=== PATIENT | female | born 1950 | race Caucasian/White ===

== ENCOUNTER 2020-05-11 07:29 | Day surgery (SDC) | payer MEDICARE ==
[2020-05-07 11:22] LABS: Absolute Lymphocytes (CBC) 1.8 K/uL (0.7-4.9); Basophils % 0.3 % (0-1.3); Hematocrit 38.1 % (36.0-45.0); Lymphocytes % 29.6 % (15.3-44.8); MPV 8.2 fL (7.6-11.3); RBC Red Blood Cell Count 4.25 M/uL (3.86-4.86)
[2020-05-07 11:36] LABS: Potassium 4.1 mmol/L (3.5-5.1)
--- NOTE | 2020-05-07 12:00 | RAD REPORT ---
EXAM DESCRIPTION: RAD - Chest Pa And Lat (2 Views) - 05/07/2020 11:05 am CLINICAL HISTORY: PRE OP, pending carpal tunnel surgery COMPARISON: None TECHNIQUE: Frontal and lateral views of the chest were obtained. FINDINGS: The lungs are clear. No failure or volume overload. Minimal prominence of the interstitia l pattern believed be baseline. Heart size is normal and central vasculature is within normal limits. No pleural effusion or pneumothorax seen. No acute bone finding. The patient has very pronounced k yphosis at the thoracolumbar junction. Scoliosis is present. Bone detail is limited on this examinati on. No aortic abnormality. IMPRESSION: No acute cardiopulmonary process. Prominent scoliosis and pronounced throughout all lumbar junction kyphosis. Bone detail is limited on this study.
--- OUTSIDE RECORDS SUMMARY | 2020-05-11 07:35 | XMS REPORT | Continuity of Care Document ---
:1950 Author Organization [facility] t Address [address] [place] [address] Care Team Providers Name Role Phone Unknown Attending Clinician Unavailable Pob, Lab Main Attending Clinician Unavailable Doctor Unassigned, Name Attending Clinician Unavailable [facility] Attending Clinician Problems This patient has no known problems. Allergies, Adverse Reactions, Alerts Allergy Allergy Status Severity Reaction(s) Onset Inactive Treating Comm ents Source Name Type Date Date Clinician Aspirin Adverse Active Info Not [facility] Reaction Available [facility] Medications Ordered Filled Start Stop Current Ordering Indication Dosage Frequency Signature Comments Components Source Medication Medication Date Date Medication? Clinician (SIG) Name Name Nitrofurant Nitrofurant 2018- 2020- No Suman [address] [facility] oin oin 12-06 Lechuga with food [facility] 00:00: 00:00 or milk [facility] l l 00 :00 l Outpati ent Clinics Tamsulosin Tamsulosin 2018- 2019- No Suman [address] [facility] HCl HCl 12-06 Lechuga [facility] Premarin Premarin Yes Suman APPLY [facility]uga VAGINALLY [facility] Q OTHER [facility] DAY l Outpat[facility] ent Clinics Mirtazapine Mirtazapine Yes Suman TK [address] [facility] QHS [facility] MANAGER CABLE Thyroid MANAGER CABLE Thyroid Yes Suman MURCIA [address] [facility] D [facility] Alendronate Alendronate Yes Suman [address] [facility] Sodium Sodium [facility] Gabapentin Gabapentin Yes Suman TK [address] [facility] TID AND 6 [facility] - CS PO QHS [facility] l Out[facility] ent Clin[facility] Morphine Morphine Yes Suman (Schedule [facility] Sulfate Sulfate Lechuga II Drug) [facility] - TK 1 T PO Memoria TID l Outpati ent Clinics Cyanocobala Cyanocobala Yes Suman INJECT [address] [facility] min min Lechuga ML UNDER [facility] THE SKIN Memoria WEEKLY l Outpati ent Clinics Lidocaine Lidocaine Yes Suman UNW AND [facility] Lechuga SCARLETT 1 PA [facility] - TO QD FOR Memoria 12 H l Outpati ent Clinics [place] Yes Suman not [facility] Thyroid Thyroid [facility] defined [facility] Myrbetriq Myrbetriq Yes Suman not [facility] defined [facility] Procedures This patient has no known procedures. Encounters Start End Encounter Admission Attending Care Care Encounter Source Date/Time Date/Time Type Type Clinicians Facility Department ID 2020-04-30 2020-04-30 Outpatient [facility] [id number] [facility] 2020-04-26 2020-04-26 Outpatient [facility] [id number] [facility] 2020-04-26 2020-04-26 Out[facility] [id number] [facility] 2020-04-26 2020-04-26 Outpatient [facility] [id number] [facility] 2020-04-06 2020-04-06 Outpatient [facility] [id number] [facility] 2020-04-05 2020-04-05 Outpatient [facility] [id number] [facility] 2020-01-31 2020-01-31 [facility] [id number] 12:07:30 23:59:00 Encounter Attending Adam [id number] [place] 4.2.7.2.686 [place] [id number] 800 2019-10-20 2019-10-20 Hide Buyer Hazel Winston [facility] [id number] 08:49:20 09:04:20 Visit Lab Main Adam [id number] [place] 4.2.7.2.686 Professio [id number] [address] 2019-10-20 2019-10-20 Orders Doctor MARIA ELENA [id number] 00:00:00 00:00:00 Only Unassigned, CASSANDRA [id number] [place] [address].2.7.2.686 [id number] 009 2019-08-19 2019-08-19 Orders Doctor ARREDONDO [id number] 00:00:00 00:00:00 Only Unassigned, CASSANDRA [id number] [place] [address]2.686 [id number] 009 2019-07-15 2019-07-15 [facility] [id number] 08:48:00 23:59:00 Encounter Brinda Medina [id number] [place] 4.2.7.2.686 [place] [id number] 806 2019-07-15 2019-07-15 Telephone [facility] [id number] 00:00:00 00:00:00 Brinda Slade SPECIALTY [id number] [facility] 4.2.7.2.686 [facility] [id number] CODEY [address] [place] [address] 2019-07-15 2019-07-15 Orders Doctor ARREDONDO [id number] 00:00:00 00:00:00 Only Unassigned, CASSANDRA [id number] [place] [address].686 [id number] 009 2019-07-14 2019-07-14 Telemed[facility] [id number] 07:53:37 08:08:37 ne Visit Padminia N SPECIALTY [id number] CARE 4.2.7.2.686 CENTER AT [id number] CODEY Wilson[address] [place] [address] 2019-07-14 2019-07-14 Telephone [facility] [id number] 00:00:00 00:00:00 Ricesthera N SPECIALTY [id number] CARE 4.2.7.2.686 CENTER AT [id number] [place] Steve[address] [place] [address] 2019-07-05 2019-07-05 Orders Doctor MARIA ELENA [id number] 00:00:00 00:00:00 Only Unassigned, CASSANDRA 350.1.13.10 [place] [facility] 4.2.7.2.686 [id number] 009 2019-07-04 2019-07-04 Office [facility] [id number] 10:16:34 11:40:47 Visit Padminia N SPECIALTY [id number] CARE 4.2.7.2.686 CENTER AT [id number] PFEIFERKhalida [address] [place] [address] 2019-04-18 2019-04-18 [facility] [id number] [facility] [address] 14:11:00 14:11:00 t [facility] 2019-04-08 2019-04-08 Emergency E [facility] 9354 [facility] 12:44:00 12:44:00 2019-03-29 2019-03-29 [facility] [id number] [address] 16:21:00 16:21:00 t [facility] Clinics 2019-03-10 2019-03-10 [facility] [id number] 08:00:00 08:00:00 t [facility] Clinics 2019-01-06 2019-01-06 Outpatient Johny Prince [id number] [facility] 10:41:00 10:41:00 t [facility] 2018-12-15 2018-12-15 Outpatient Johny Prince [id number] 09:22:00 09:22:00 [facility] 2018-12-07 2018-12-07 Outpatient Johny Prince [id number] [address] 09:00:00 09:00:00 t [facility] 2018-12-06 2018-12-06 Outpatient Johny Prince [id number] 09:15:00 09:15:00 t Specialty/U Nana kes - Specialty rology [facility] a /Urology Clinic [facility] ent [facility] Results This patient has no known results.
--- OUTSIDE RECORDS SUMMARY | 2020-05-11 07:35 | XMS REPORT ---
:1950 Author Organization [facility] Address [address] [place] [address] Care Team Providers Name Role Phone Suman Lechuga Unavailable [phone] PROBLEMS Type Condition ICD9-CM DEV01-BM Onset Condition SNOMED Code Notes Code Code Dates Status Problem Bladder N81.10 Active 703792550 prolapse, female, acquired Problem Pain in right M79.641 Active 671166442488488 hand Problem Carpal tunnel G56.01 Active 360144415593825 syndrome of right wrist Problem Carpal tunnel G56.02 Active 354250031762626 syndrome of left wrist ALLERGIES Allergen (clinical drug Drug/Non Drug Allergy Reaction Allergy Type Onset Date Status ingredient) documented on EMR codeine codeine Unknown Drug Allergy Active Latex Unknown Drug Allergy Active aspirin Aspirin([facility] Unknown Drug Allergy Active Code:[address]-68) ENCOUNTERS from 1950 to 2020-04-26 Encounter Location Date Provider Diagnosis [facility] [address] Apr, [place] [address] IMMUNIZATIONS Vaccine Route Administration Date Status Betamethasone Sodium Phosphate Unknown Dec 07, 2018 A dministered LIDOCAINE HCL 10MG/ML Unknown Dec 07, 2018 Administer ed SOCIAL HISTORY Tobacco Use: Social History Observation Description Date Details (start date - stop date) Former Smoker Sex Assigned At : Social History Observation Description Sex Assigned At Unknown Alcohol Screen Question Answer Notes Did you have a drink containing alcohol in the past year? 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 Thyroid 90 MG TK 1 T PO D Oral for Active 30 Tamsulosin HCl 0.4 mg 1 capsule Orally Once Not-Taking a day for 30 Mirtazapine 30 MG TK 1 T PO QHS Oral for Not-Taking 90 Gabapentin 400 MG TK 1 C PO TID AND 6 CS Active PO QHS Oral for 30 Lidocaine 5 % UNW AND SCARLETT 1 PA TO QD Active FOR 12 H External for 30 Morphine Sulfate 15 MG (Schedule II Drug) TK Not-Taking 1 T PO TID Oral for 28 Cyanocobalamin 1000 MCG/ML INJECT 1 ML UNDER THE Active SKIN WEEKLY Injection for 7 Alendronate Sodium 70 MG 1 tablet Orally for 30 Active day(s) AZO Cranberry Urinary Act kian Tract Turmeric Active Multivitamin Active Myrbetriq Not-Taking [place] Thyroid Not-Taking Zinc Active PROCEDURES No Information RESULTS No Results REASON FOR VISIT Surgery MEDICAL (GENERAL) HISTORY Type Description Date Medical History breast cancer Medical History scoliosis Medical History vricous vein Medical History prolapsed bladder Surgical History right ankle Surgical History thoraic and lumbar spinal fusion Surgical History c section (2) Surgical History partial hysterectomy Surgical History right wrist Surgical History Pain pump Goals Section No Information Health Concerns No Information MEDICAL EQUIPMENT No Information MENTAL STATUS No Information FUNCTIONAL STATUS No Information ASSESSMENTS No Information PLAN OF TREATMENT No Information Insurance Providers Payer Name Payer Payer Insured Patient Coverage Coverage End Address Phone Name Relationship to Start Date Nirmal e Insured [phone] RYAN LOPEZ [facility] [id number] [address] [facility] [address]
--- OUTSIDE RECORDS SUMMARY | 2020-05-11 07:35 | XMS REPORT ---
:1950 Author Organization [facility] Address [address], [facility] [place] [address] Care Team Providers Name Role Phone Lechuga, Suman Unavailable [phone] PROBLEMS Type Condition ICD9-CM LWW42-ZE Onset Condition SNOMED Code Notes Code Code Dates Status Problem Bladder N81.10 Active 868678523 prolapse, female, acquired Problem Pain in right M79.641 Active 104573641045641 hand Problem Carpal tunnel G56.01 Active 532584469400313 syndrome of right wrist Problem Carpal tunnel G56.02 Active 723806930504287 syndrome of left wrist ALLERGIES Allergen (clinical drug Drug/Non Drug Allergy Reaction Allergy Type Onset Date Status ingredient) documented on EMR codeine codeine Unknown Drug Allergy Active Latex Unknown Drug Allergy Active aspirin Aspirin([facility] Unknown Drug Allergy Active Code:[address]-49) ENCOUNTERS from 1950 to 2020-04-16 Encounter Location Date Provider Diagnosis [facility] [address] [place], Suman Lechuga Carp [facility] tunnel [facility] [address], [place] [address] wrist G56.01 ; Pain in right wrist M25.531 ; Carpa l tunnel syndrome of left wrist G56. 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 LECHUGA MEDICAL (GENERAL) HISTORY Type Description Date Medical [...] No Information FUNCTIONAL STATUS No Information ASSESSMENTS Encounter Date Diagnosis Assessment Notes Treatment Notes Treatm ent Clinical Notes Mar, Carpal tunnel -she has failed syndrome of right conservative wrist (ICD-10 - treatment including G56.01) use of night spl ints -EMG/NCS demonstrates moderate to severe carpal tunnel syndrome -will proceed with carpal tunnel release of the right as it is more symptomatic at this time -return to clinic postop for suture removal -will discuss left carpal tunnel release after independent with the right hand Mar, Pain in right wrist (ICD-10 - M25.531) Mar, Carpal tunnel -she has failed syndrome of left conservative wrist (ICD-10 - treatment including G56.02) use of night spl ints -EMG/NCS demonstrates moderate to severe carpal tunnel syndrome -will proceed with carpal tunnel release of the right as it is more symptomatic at this time -return to clinic postop for suture removal -will discuss left carpal tunnel release after independent with the right hand Mar, Pain in left wrist (ICD-10 - M25.532) PLAN OF TREATMENT Treatment Notes Assessment Notes Clinical Notes Carpal tunnel syndrome of right -she has failed conservative wrist treatment including use of night splints-EMG/NCS demonstrates moderate to severe carpal tunnel syndrome-will proceed with carpal tunnel release of the right as it is more symptomatic at this time-return to clinic postop for suture removal-will discuss left carpal tunnel release after independent with the right hand Carpal tunnel syndrome of left -she has failed conservative wrist treatment including use of night splints-EMG/NCS demonstrates moderate to severe carpal tunnel syndrome-will proceed with carpal tunnel release of the right as it is more symptomatic at this time-return to clinic postop for suture removal-will discuss left carpal tunnel release after independent with the right hand Next Appt Details 1 Week post op surgery Reason: Insurance Providers Payer Name Payer Payer Insured Patient Coverage Coverage End Address Phone Name Relationship to Start Date Nirmal e Insured [facility] [phone] RYAN LOPEZ [facility] [id number] [facility] [address]
--- OUTSIDE RECORDS SUMMARY | 2020-05-11 07:35 | XMS REPORT ---
:1950 Author Organization [facility] Address [address] [place] [address] Care Team Providers Name Role Phone Suman Lechuga Unavailable [phone] PROBLEMS Type Condition ICD9-CM NLA91-BN Onset Condition SNOMED Code Notes Code Code Dates Status Problem Bladder N81.10 Active 672286463 prolapse, female, acquired Problem Pain in right M79.641 Active 955704856786235 hand Problem Carpal tunnel G56.01 Active 898545137218094 syndrome of right wrist Problem Carpal tunnel G56.02 Active 478580307692879 syndrome of left wrist ALLERGIES Allergen (clinical drug Drug/Non Drug Allergy Reaction Allergy Type Onset Date Status ingredient) documented on EMR codeine codeine Unknown Drug Allergy Active Latex Unknown Drug Allergy Active aspirin Aspirin([facility] Unknown Drug Allergy Active Code:[address]-91) ENCOUNTERS from 1950 to 2020-04-16 Encounter Location Date Provider Diagnosis [facility] [address] Mar, [place] [address] IMMUNIZATIONS Vaccine Route Administration Date Status Betamethasone [...] Start Date End Date Status Frequency, Duration) 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
--- OUTSIDE RECORDS SUMMARY | 2020-05-11 07:35 | XMS REPORT ---
:1950 Author Organization [facility] Address [address] [place] [address] Care Team Providers Name Role Phone Suman Lechuga Unavailable [phone] PROBLEMS Type Condition ICD9-CM YCG26-VH Onset Condition SNOMED Code Notes Code Code Dates Status Problem Bladder N81.10 Active 796054764 prolapse, female, acquired Problem Pain in right M79.641 Active 031972554917946 hand Problem Carpal tunnel G56.01 Active 712613422964550 syndrome of right wrist Problem Carpal tunnel G56.02 Active 419576470858064 syndrome of left wrist ALLERGIES Allergen (clinical drug Drug/Non Drug Allergy Reaction Allergy Type Onset Date Status ingredient) documented on EMR codeine codeine Unknown Drug Allergy Active Latex Unknown Drug Allergy Active aspirin Aspirin([facility] Unknown Drug Allergy Active Code:[address]-42) ENCOUNTERS from 1950 to 2020-04-27 Encounter Location Date Provider Diagnosis [facility] [address] Apr, [place] [address] IMMUNIZATIONS Vaccine Route Administration Date Status Betamethasone [...] Start Date End Date Status Frequency, Duration) 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
--- OUTSIDE RECORDS SUMMARY | 2020-05-11 07:35 | XMS REPORT ---
:1950 Author Organization [facility] Address [address] [place] [address] Care Team Providers Name Role Phone Suman Lechuga Unavailable [phone] PROBLEMS Type Condition ICD9-CM LDY58-ZR Onset Condition SNOMED Code Notes Code Code Dates Status Problem Bladder N81.10 Active 302206438 prolapse, female, acquired Problem Pain in right M79.641 Active 162086875222615 hand Problem Carpal tunnel G56.01 Active 354572708709114 syndrome of right wrist Problem Carpal tunnel G56.02 Active 792298410763659 syndrome of left wrist ALLERGIES Allergen (clinical drug Drug/Non Drug Allergy Reaction Allergy Type Onset Date Status ingredient) documented on EMR codeine codeine Unknown Drug Allergy Active Latex Unknown Drug Allergy Active aspirin Aspirin([facility] Unknown Drug Allergy Active Code:[address]-85) ENCOUNTERS from 1950 to 2020-04-27 Encounter Location Date Provider Diagnosis [facility] [address] [place] [address] Apr, [place] [address] IMMUNIZATIONS Vaccine Route Administration Date Status Betamethasone [...] Start Date End Date Status Frequency, Duration) 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
--- OUTSIDE RECORDS SUMMARY | 2020-05-11 07:36 | XMS REPORT ---
:1950 Author Organization [facility] Address [address] [place] [address] Care Team Providers Name Role Phone Suman Lechuga Unavailable [phone] PROBLEMS Type Condition ICD9-CM ZFP62-CV Onset Condition SNOMED Code Notes Code Code Dates Status Problem Bladder N81.10 Active 693391910 prolapse, female, acquired Problem Pain in right M79.641 Active 384495788242085 hand Problem Carpal tunnel G56.01 Active 936475492222908 syndrome of right wrist Problem Carpal tunnel G56.02 Active 285626746841559 syndrome of left wrist ALLERGIES Allergen (clinical drug Drug/Non Drug Allergy Reaction Allergy Type Onset Date Status ingredient) documented on EMR codeine codeine Unknown Drug Allergy Active Latex Unknown Drug Allergy Active aspirin Aspirin([facility] Unknown Drug Allergy Active Code:[address]-53) ENCOUNTERS from 1950 to 2020-05-01 Encounter Location Date Provider Diagnosis [facility] [address] Apr, [place] [address] IMMUNIZATIONS Vaccine Route Administration Date Status Betamethasone [...] Start Date End Date Status Frequency, Duration) 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 Thyroid 90 MG TK 1 T PO [...] Tract Turmeric Active Multivitamin Active Myrbetriq Not-Taking [place] Thyroid Not-Taking Zinc Active PROCEDURES No Information RESULTS No Results REASON FOR VISIT Surgery question MEDICAL (GENERAL) HISTORY Type Description Date Medical [...] Information ASSESSMENTS No Information PLAN OF TREATMENT Next Appt Details Provider Name:Suman Lechuga, 2020-05-17 0 1:00:00 PM, [address] [facility] [address], [place], [address], Insurance Providers Payer Name Payer Payer Insured Patient Coverage Coverage End Address Phone Name Relationship to Start Date Nirmal e Insured [facility] [phone] MINTURNR[place]AN [facility] [phone] [facility] [address]
[2020-05-11] MEDS ORDERED: CEFAZOLIN/SWI 1gm 1 GM/10 ML SYR ONE (08:05)
[2020-05-11] MEDS ORDERED: Ringers Lactate 1,000 ML IV ONE (08:05)
[2020-05-11] MEDS ORDERED: BUPIVACAINE 0.25% PF 10 ML VIAL ONE (08:20)
[2020-05-11] MEDS ORDERED: KETOROLAC 30 MG/ML INJ ONE (08:52)
[2020-05-11] MEDS ORDERED: dexAMETHasone 10 MG/ML VIAL ONE (08:52)
[2020-05-11] MEDS ORDERED: LIDOCAINE 2% MPF 5 ML VIAL ONE (08:52)
[2020-05-11] MEDS ORDERED: FENTANYL CITR 100 MCG/2 ML ONE (08:52)
[2020-05-11] MEDS ORDERED: MIDAZOLAM HCL 2 MG/2 ML INJ ONE (08:52)
[2020-05-11] MEDS ORDERED: propofoL 200 MG/20 ML VIAL IV ONE (08:52)
[2020-05-11] MEDS ORDERED: ONDANSETRON 4 MG/2 ML VIAL ONE (08:57)
[2020-05-11] MEDS ORDERED: EPHEDRINE SULF 50 MG/ML VIAL ONE ×2 (09:45→09:48)
--- NOTE | 2020-05-11 10:00 | P.BOP ---
Preoperative diagnosis: right carpal tunnel syndrome Postoperative diagnosis: same Primary procedure: right carpal tunnel release Gaming Table Operator: NONE,NONE Estimated blood loss: 2 cc Specimen: none Findings: see dictation Anesthesia: General Complications: None Implants: none Fluids & blood products: per anesthesia record; TT: 17 mins @ 250 mmHg Transferred to: Recovery Room Condition: Good
[2020-05-11] MEDS: HYDROMORPHONE HCL 1 MG/ML INJ ONE ×2 (10:23→10:28)
[2020-05-11] MEDS ORDERED: TRAMADOL HCL 50 MG TAB ONE (11:14)
[2020-05-11 12:10] VITALS: BP 132/83; TEMP 96.1; O2SAT 92
--- NOTE | 2020-05-12 00:56 | OP ---
Date of Procedure: 05/11/2020 Surgeon: Suman Lechuga MD Preoperative Diagnosis: Right hand carpal tunnel syndrome. Postoperative Diagnosis: Right hand carpal tunnel syndrome. Procedure Performed: Right open carpal tunnel release. Anesthesia: General LMA. Fluids: Per anesthesia record. Estimated Blood Loss: 3 cc. Complications: None. Tourniquet Time: 17 minutes at 250 mmHg. Indication For Procedure: Hilary is a 70-year-old female, who presented to my clinic with signs, sympt oms, and EMG findings consistent with significant right carpal tunnel syndrome. The patient failed c onservative treatment measures and had significant symptoms interfering with her activities of daily living. I discussed with the patient at length risks and benefits associated with operative and nono perative treatment. She expressed understanding and elected to proceed with operative treatment. Description Of Procedure: After informed consent was obtained, the patient was identified in the pre operative holding area. The right upper extremity was marked. The patient was then brought back to the operating room, transferred to the operative table in supine fashion, placed under general LMA an esthesia. The right upper extremity was then prepped and draped in usual sterile fashion. A time-ou t was initiated. The correct patient and procedure were confirmed and identified. The patient did r eceive her preoperative prophylactic antibiotics. The right lower extremity was then exsanguinated u sing an Esmarch and the tourniquet was inflated to 250 mmHg. Approximately a 1 or 2 cm longitudinal incision was made just ulnar to the thenar crease. Dissection was then taken down to the palmar fasc ia. Self-retaining retractor was placed. The palmar fascia was then split and divided using tenotom ies. A [place] elevator was placed just deep to the palmar fascia to protect the median nerve at all t imes. A 15 blade was then used to release the transverse carpal ligament under direct visualization as well as continued protection of the median nerve with a [place] elevator. Any remaining fascial ban ds were then released using a blunt-tipped Metzenbaum scissor with the tips aimed superficially to pr otect the median nerve at all times. The wound was then irrigated thoroughly with normal saline. Th e skin was approximated using a 5-0 Prolene. Sterile dressings were applied. Tourniquet was let neyda n. The patient was awakened and transferred to PACU in stable condition. Postoperative Plan: She may begin working on range of motion exercises. She will follow up in clini c in 1 week for suture removal. CLARI/MONISHA Voice ID: [id number] Report ID: [id number]
== END 2020-05-11 11:55 | disposition home health service (06) ==
LOC: OR 07:29
PROVIDERS: ATTEND Orthopaedic Surgery Sports Medicine
PROC: 01N50ZZ Release Median Nerve, Open Approach (ICD-10-PCS; principal; 2020-05-11 08:45)
DX: G56.01 Carpal tunnel syndrome, right upper limb (principal); Z20.822 Contact with and (suspected) exposure to COVID-19
CPT/HCPCS: 93005; 85025; 80048; 36415; 85610; 85730; 71046; 64721; U0002; J2704; J2250; J3010; J1100; J1170; J0690; J7120; J2405

== ENCOUNTER 2020-07-18 06:38 | Day surgery (SDC) | payer MEDICARE ==
[2020-07-13 10:43] LABS: Protime INR 0.92
[2020-07-13 10:47] LABS: Absolute Lymphocytes (CBC) 2.2 K/uL (0.7-4.9); Basophils % 1.1 % (0-1.3); Hematocrit 36.5 % (36.0-45.0); Lymphocytes % 30.7 % (15.3-44.8); MPV 8.5 fL (7.6-11.3); RBC Red Blood Cell Count 4.05 M/uL (3.86-4.86)
[2020-07-13 10:55] LABS: Potassium 4.1 mmol/L (3.5-5.1)
[2020-07-13 11:15] LABS: Blood Morphology Comment NOT SEEN (NOT SEEN); Platelet Estimate ADEQ; White Blood Cell Scan OK (OK)
[2020-07-18] MEDS ORDERED: ACETAMINOPHEN 500 MG TAB ONE (07:13)
[2020-07-18] MEDS ORDERED: Ringers Lactate 1,000 ML IV ONE (07:13)
[2020-07-18] MEDS ORDERED: CEFAZOLIN/SWI 1gm 1 GM/10 ML SYR ONE (07:13)
[2020-07-18] MEDS ORDERED: CELECOXIB 100 MG CAPSULE ONE (07:13)
[2020-07-18] MEDS ORDERED: MIDAZOLAM HCL 2 MG/2 ML INJ ONE (07:18)
[2020-07-18] MEDS ORDERED: KETOROLAC 30 MG/ML INJ ONE (07:18)
[2020-07-18] MEDS ORDERED: LIDOCAINE 1% MPF 5 ML VIAL ONE (07:18)
[2020-07-18] MEDS ORDERED: FENTANYL CITR 100 MCG/2 ML ONE (07:18)
[2020-07-18] MEDS ORDERED: propofoL 200 MG/20 ML VIAL IV ONE (07:18)
[2020-07-18] MEDS ORDERED: dexAMETHasone 10 MG/ML VIAL ONE (07:19)
[2020-07-18] MEDS: BUPIVACAINE 0.25% PF 10 ML VIAL ONE ×2 (07:51→08:05)
--- NOTE | 2020-07-18 08:19 | P.BOP ---
Preoperative diagnosis: left carpal tunnel syndrome Postoperative diagnosis: same Primary procedure: left open carpal tunnel release Sanitation Manager: NONE,NONE Estimated blood loss: 3 cc Specimen: none Findings: see dictation Anesthesia: General Complications: None Implants: none Fluids & blood products: per anesthesia record; TT: 17 mins @ 250 mmHg Transferred to: Recovery Room Condition: Good
[2020-07-18] MEDS: FENTANYL CITR 100 MCG/2 ML ONE ×2 (08:35→08:45)
[2020-07-18] MEDS ORDERED: ONDANSETRON 4 MG/2 ML VIAL ONE (08:48)
[2020-07-18] MEDS ORDERED: HYDROMORPHONE HCL 1 MG/ML INJ ONE (09:09)
[2020-07-18 09:40] VITALS: BP 145/77; TEMP 96.8; O2SAT 95
--- NOTE | 2020-07-18 21:26 | OP ---
Date of Procedure: 07/18/2020 Surgeon: Suman Lechuga MD Preoperative Diagnosis: Left carpal tunnel syndrome. Postoperative Diagnosis: Left carpal tunnel syndrome. Procedure Performed: Left open carpal tunnel release. Anesthesia: General, LMA. Fluids: Per Anesthesia record. Ebl: 3 cc. Tourniquet Time: 17 minutes at 250 mmHg. Indication For Procedure: Jenna is a 70-year-old female who presented to my clinic with signs, symp toms, and EMG findings consistent with left carpal tunnel syndrome. Patient failed conservative lamonte tment measures and had significant pain and numbness that interfere with her activities of daily kita ng. I discussed with the patient at length risks and benefits associated with operative and nonopera tive treatment. She expressed understanding and elected to proceed with left carpal tunnel release. Description Of Procedure: After informed consent was obtained, the patient was identified in the pre operative holding area. The left upper extremity was marked. The patient was then brought back to [facility] operating room, transferred to the operative table in a supine fashion, and placed under general L MA anesthesia. The left upper extremity was then prepped and draped in usual sterile fashion. A angy e-out was initiated. The correct patient and procedure were confirmed and identified. The patient d id receive her preoperative prophylactic antibiotics. Approximately 3 cm longitudinal incision was m scar just ulnar to the thenar crease. Dissection was then taken down to the palmar fascia, which was identified. A [place] elevator was placed just deep to the palmar fascia and transverse carpal ligamen t to protect the median nerve at all times. A 15 blade was then used to release the transverse carpa l ligament under direct visualization with the Slayden elevator protecting the median nerve at all time s. Smooth tip Metzenbaums were then used to release any remaining fascial bands around the transvers e carpal ligament. The wound was then irrigated thoroughly with normal saline and skin was approxima lucien using a 5-0 Prolene. Sterile dressings were applied. Tourniquet was let down. The patient was awakened and transferred to PACU in stable condition. Postoperative Plan: She will be nonweightbearing of her left upper extremity. She will follow up in my clinic in 1 to 2 weeks for wound check and suture removal. CV/MODL Voice ID: [id number] Report ID: [id number]
== END 2020-07-18 09:45 | disposition home or self-care (01) ==
LOC: OR 06:38
PROVIDERS: ATTEND Orthopaedic Surgery Sports Medicine
PROC: 01N50ZZ Release Median Nerve, Open Approach (ICD-10-PCS; principal; 2020-07-18 07:30)
DX: G56.02 Carpal tunnel syndrome, left upper limb (principal); Z20.822 Contact with and (suspected) exposure to COVID-19
CPT/HCPCS: 85025; 80048; 36415; 85610; 85730; 64721; U0002; J2704; J2250; J3010 ×2; J1100; J1170; J0690; J7120; J2405

== ENCOUNTER 2021-02-01 17:43 | Inpatient (IN) | payer MEDICARE ==
[2021-02-01 21:21] LABS: Absolute Lymphocytes (CBC) 2.6 K/uL (0.7-4.9); Basophils % 0.7 % (0-1.3); Hematocrit 44.7 % (36.0-45.0); Lymphocytes % 13.8 % (15.3-44.8); MPV 7.3 fL (7.6-11.3); RBC Red Blood Cell Count 4.94 M/uL (3.86-4.86)
[2021-02-01 21:25] LABS: Albumin 3.4 g/dL (3.4-5.0); Bilirubin Direct 0.2 mg/dL (0-0.2); Bilirubin Total 0.6 mg/dL (0.2-1.0); Potassium 3.1 mmol/L (3.5-5.1); Protein, Total 7.7 g/dL (6.4-8.2)
[2021-02-01] MEDS ORDERED: PIPERACIL/TAZO 3.375 GM VIAL IV ONE (22:25)
[2021-02-01] MEDS ORDERED: NA CHLORIDE 0.9% 100 ML ONE (22:26)
--- NOTE | 2021-02-02 01:49 | EDPHYS ---
Physician Documentation [facility] Name: Jenna Zuleta Age: 71 yrs Sex: Female : 1950 Arrival Date: 02/01/2021 Time: 17:47 Bed 13 Private MD: ED Physician David Brown HPI: 02/01 20:12 71-year-old female presenting with back pain. She has a history of chronic back pain ps1 secondary to severe kyphoscoliosis. She has a Dilaudid pump as well as clonidine for chronic pain. She has been seen multiple times over the past week at [facility] in which she had a headache nausea and vomiting she had a CT scan at that time which demonstrated no acute findings. She had hematuria on her UA. She was given Phenergan and discharged from the emergency department with no acute findings. She went to [place] freestanding which they performed Covid influenza and respiratory viral panel also gave her IV fluids and Zofran. Daughter brought her in today for reevaluation as she is not eating or drinking anything in the last 2 days other than a little bit of Ensure. She is still complaining of moderate to severe back pain. She states that the pain is similar to her normal chronic back pain but is increased in intensity.. Historical: - Allergies: 18:13 Codeine; ld1 18:13 Methadone; ld1 18:13 Latex, Natural Rubber; ld1 - Home Meds: 18:13 alendronate 70 mg oral tbef 1 tab once wkly [Active]; gabapentin 800 mg oral tab ld1 [Active]; cyanocobalamin (vitamin B-12) oral chew [Active]; Lidoderm 5 % Topical ptmd [Active]; - PMHx: 18:13 scoliosis; Hypothyroidism; ld1 - PSHx: 18:13 pain pump; thoracic spinal fusion; partial hysterectomy; Lumpectomy of breast; ld1 section; - Immunization history:: Adult Immunizations up to date, Client reports receiving the 2nd dose of the Covid vaccine. - Social history:: Smoking status: Patient/guardian denies using tobacco, the patient reports quitting approximately 14 years ago. ROS: 20:12 Constitutional: Negative for fever, chills, and weight loss, Eyes: Negative for injury, ps1 pain, redness, and discharge, Cardiovascular: Negative for chest pain, palpitations, and edema, Respiratory: Negative for shortness of breath, cough, wheezing, and pleuritic chest pain, MS/Extremity: Negative for injury and deformity, Skin: Negative for injury, rash, and discoloration, Neuro: Negative for headache, weakness, numbness, tingling, and seizure. 20:12 Abdomen/GI: Positive for nausea and vomiting. 20:12 Back: Positive for pain with movement. Exam: 20:12 Constitutional: This is a well developed, well nourished patient who is awake, alert, ps1 and in no acute distress. Head/Face: Normocephalic, atraumatic. Eyes: Pupils equal round and reactive to light, extra-ocular motions intact. Lids and lashes normal. Conjunctiva and sclera are non-icteric and not injected. Cardiovascular: Regular rate and rhythm. No gallops, murmurs, or rubs. Normal PMI, no JVD. No pulse deficits. Respiratory: Lungs have equal breath sounds bilaterally, clear to auscultation and percussion. No rales, rhonchi or wheezes noted. No increased work of breathing, no retractions or nasal flaring. Abdomen/GI: Soft, non-tender, with normal bowel sounds. No distension or tympany. No guarding or rebound. No evidence of tenderness throughout. Skin: Warm, dry with normal turgor. Normal color with no rashes, no lesions, and no evidence of cellulitis. MS/ Extremity: Pulses equal, no cyanosis. Neurovascular intact. Full, normal range of motion. Neuro: Awake and alert, GCS 15, oriented to person, place, time, and situation. Cranial nerves II-XII grossly intact. Sensory grossly intact. 20:12 Back: scoliosis that is marked. Vital Signs: 18:10 BP 167 / 112; Pulse 113; Resp 22; Temp 98.9(O); Pulse Ox 98% on R/A; Weight 52.16 kg; ld1 Height 5 ft. 0 in. (152.40 cm); Pain 10/10; 18:10 Body Mass Index 22.46 (52.16 kg, 152.40 cm) ld1 MDM: 20:17 Patient medically screened. ps1 02/01 20:12 Order name: Basic Metabolic Panel; Complete Time: 21:30 ps1 02/01 20:12 Order name: CBC with Diff; Complete Time: 21:30 ps1 02/01 20:12 Order name: Hepatic Function; Complete Time: 21:30 ps1 02/01 20:12 Order name: Lipase; Complete Time: 21:30 ps1 02/02 01:26 Order name: CREATININE WHOLE BLOOD; Complete Time: 01:47 EDMS 02/02 01:46 Order name: Blood Culture Adult (2) ps1 02/02 01:49 Order name: Lactate la1 02/02 01:49 Order name: Procalcitonin la1 02/02 01:49 Order name: Urine Microscopic Only la1 02/02 01:50 Order name: COVID-19 (Coronavirus) Document "Date of Onset" if Symptomatic la1 02/02 01:50 Order name: Flu; Complete Time: 04:59 la1 02/02 01:52 Order name: TSH la1 02/02 01:52 Order name: T4 Free la1 02/02 03:55 Order name: Lactate tt3 02/01 20:12 Order name: CT Abd/Pelvis - IV Contrast Only ps1 02/02 01:49 Order name: Chest Single View XRAY la1 02/02 04:05 Order name: Procal tt3 02/02 04:14 Order name: Lactate; Complete Time: 04:59 EDMS 02/02 04:24 Order name: SARS-COV-2 RT PCR; Complete Time: 04:59 EDMS 02/02 04:37 Order name: Procalcitonin; Complete Time: 04:59 EDMS 02/02 07:41 Order name: RAD EDMS 02/02 09:01 Order name: Urinalysis EDMS 02/02 09:03 Order name: CBC with Automated Diff EDMS 02/02 09:07 Order name: Comprehensive Metabolic Panel EDMS 02/02 09:07 Order name: Lipid Profile EDMS 02/02 09:07 Order name: Magnesium EDMS 02/02 09:11 Order name: Urine Microscopic Only EDMS 02/01 20:12 Order name: IV Saline Lock; Complete Time: 20:28 ps1 02/01 20:12 Order name: Labs collected and sent; Complete Time: 20:28 ps1 Administered Medications: 21:57 Drug: Zosyn (piperacillin-tazobactam) 3.375 grams Route: IVPB; Infused Over: 60 mins; mr2 Site: right antecubital; 10/16 02:39 Drug: NS 0.9% 1000 ml Route: IV; Rate: 1000 ml; Site: left antecubital; mr2 02:39 Drug: Potassium Chloride 20 mEq Route: IV; Rate: calculated rate; Site: left mr2 antecubital; 02:39 Drug: traZODONE 100 mg Route: PO; mr2 02:39 Drug: ProTONIX (pantoprazole) 40 mg Route: IVP; Site: left antecubital; mr2 Disposition Summary: 02/02/21 01:48 Hospitalization Ordered Hospitalization Status: Inpatient Admission ps1 Provider: Jose Antonio Villalta ps1 Condition: Stable ps1 Problem: new ps1 Symptoms: are unchanged ps1 Bed/Room Type: Standard ps1 Location: Telemetry/MedSurg (Inpatient)(02/02/21 14:56) eb Room Assignment: [facility](02/02/21 14:56) Diagnosis - Other specified sepsis ps1 Forms: - Medication Reconciliation Form ps1 - SBAR form ps1 Signatures: Dispatcher [employer] EDVincent Fuller FNP-C FNP-Cla1 Cynthia Mayo, RN RN cg David Brown MD MD ps1 Trisha Still Lauren, RN RN ld1 Marlon Del Angel RN RN mr2 Corrections: (The following items were deleted from the chart) 02:16 01:48 Telemetry/MedSurg (Inpatient) ps1 cg 02:16 01:48 ps1 cg 14:56 02:16 [facility] ER HOLD cg eb 14:56 02:16 ERHOLD- cg eb
--- NOTE | 2021-02-02 01:49 | ER ---
Nurse's Notes [facility] Name: Jenna Zuleta Age: 71 yrs Sex: Female : 1950 Arrival Date: 02/01/2021 Time: 17:47 Bed 13 Private MD: Diagnosis: Other specified sepsis Presentation: 02/01 18:10 Chief complaint: Patient states: she has been weak and lethargic X 3 days. Pt reports ld1 ABD pain, fever and vomiting. Pt reports being seen at [facility] on 01/31/2021. Coronavirus screen: At this time, the client does not indicate any symptoms associated with coronavirus-19. Ebola Screen: No symptoms or risks identified at this time. Initial Sepsis Screen: Does the patient meet any 2 criteria? No. Patient's initial sepsis screen is negative. Does the patient have a suspected source of infection? No. Patient's initial sepsis screen is negative. Risk Assessment: Do you want to hurt yourself or someone else? Patient reports no desire to harm self or others. Onset of symptoms was January 29, 2021. 18:10 Method Of Arrival: Wheelchair ld1 18:10 Acuity: NAVIN 3 ld1 Triage Assessment: 18:13 General: Appears in no apparent distress. uncomfortable, Behavior is calm, cooperative, ld1 appropriate for age, drowsy. Pain: Complains of pain in forehead, lumbar area, epigastric area, right upper quadrant and left upper quadrant Pain does not radiate. Pain currently is 10 out of 10 on a pain scale. Quality of pain is described as throbbing, Pain began 2-3 days ago. Is continuous. EENT: No signs and/or symptoms were reported regarding the EENT system. Neuro: Level of Consciousness is awake, alert, Oriented to person, place, time, situation, Appropriate for age. Cardiovascular: Capillary refill < 3 seconds Patient's skin is warm and dry. Respiratory: Airway is patent Respiratory effort is even, unlabored, Respiratory pattern is regular, symmetrical. GI: Abdomen is flat, non-distended, Reports upper abdominal pain, intolerance of food, vomiting. : No signs and/or symptoms were reported regarding the genitourinary system. Derm: No signs and/or symptoms reported regarding the dermatologic system. Musculoskeletal: No signs and/or symptoms reported regarding the musculoskeletal system. Historical: - Allergies: 18:13 Codeine; ld1 18:13 Methadone; ld1 18:13 Latex, Natural Rubber; ld1 - Home Meds: 18:13 alendronate 70 mg oral tbef 1 tab once wkly [Active]; gabapentin 800 mg oral tab ld1 [Active]; cyanocobalamin (vitamin B-12) oral chew [Active]; Lidoderm 5 % Topical ptmd [Active]; - PMHx: 18:13 scoliosis; Hypothyroidism; ld1 - PSHx: 18:13 pain pump; thoracic spinal fusion; partial hysterectomy; Lumpectomy of breast; ld1 section; - Immunization history:: Adult Immunizations up to date, Client reports receiving the 2nd dose of the Covid vaccine. - Social history:: Smoking status: Patient/guardian denies using tobacco, the patient reports quitting approximately 14 years ago. Vital Signs: 18:10 BP 167 / 112; Pulse 113; Resp 22; Temp 98.9(O); Pulse Ox 98% on R/A; Weight 52.16 kg; ld1 Height 5 ft. 0 in. (152.40 cm); Pain 10/10; 18:10 Body Mass Index 22.46 (52.16 kg, 152.40 cm) ld1 ED Course: 17:47 Patient arrived in ED. mr 18:13 Triage completed. ld1 18:13 Arm band placed on right wrist. ld1 19:37 Marlon Del Angel, MARTÍNEZ is Primary Nurse. mr2 19:48 David Brown MD is Attending Physician. ps1 20:28 Basic Metabolic Panel Sent. mr2 20:28 CBC with Diff Sent. mr2 20:28 Hepatic Function Sent. mr2 20:28 Lipase Sent. mr2 10 00:48 Missed attempt(s): 20 gauge in left upper arm. Bleeding controlled, band aid applied, bb catheter tip intact. Inserted saline lock: 22 gauge in left antecubital area, using aseptic technique. 01:09 CT Abd/Pelvis - IV Contrast Only In Process Unspecified. EDMS 01:48 Jose Antonio Villalta DO is Hospitalizing Provider. ps1 02:40 Flu Sent. mr2 02:40 COVID-19 (Coronavirus) Document "Date of Onset" if Symptomatic Sent. mr2 Administered Medications: 02/01 21:57 Drug: Zosyn (piperacillin-tazobactam) 3.375 grams Route: IVPB; Infused Over: 60 mins; mr2 Site: right antecubital; 02/02 02:39 Drug: NS 0.9% 1000 ml Route: IV; Rate: 1000 ml; Site: left antecubital; mr2 02:39 Drug: Potassium Chloride 20 mEq Route: IV; Rate: calculated rate; Site: left mr2 antecubital; 02:39 Drug: traZODONE 100 mg Route: PO; mr2 02:39 Drug: ProTONIX (pantoprazole) 40 mg Route: IVP; Site: left antecubital; mr2 Outcome: 01:48 Decision to Hospitalize by Provider. ps1 16:24 Patient left the ED. [email or web address] Signatures: Dispatcher [employer] Mikaela Pretty Brenda, RN RN bb Davies, Jonathon, RN RN jd3 David Brown MD MD ps1 Serenity Jc RN RN ld1 Marlon Del Angel RN RN mr2
--- NOTE | 2021-02-02 02:24 | P.HP ---
Certification for Inpatient Patient admitted to: Inpatient With expected LOS: >2 Midnights Patient will require the following post-hospital care: None Practitioner: I am a practitioner with admitting privileges, knowledge of patient current condition, hospital course, and medical plan of care. Services: Services provided to patient in accordance with Admission requirements found in Title 42 Section 412.3 of the Code of Federal Regulations Patient History Date of Service: 02/02/21 Primary Care Provider: Dr. Rajput, Dr. Higgins (pain) Reason for admission: Leukocytosis, abdominal pain, vomiting History of Present Illness: 71-year-old female with history of scoliosis, hypothyroidism, chronic pain with pain pump presented to the emergency department for abdominal pain, vomiting, headaches. Patient reports that she is seen at [facility] emergency department on Thursday for similar complaint had CT scan of the head as well as blood work and IV fluids and was discharged home, also went to [facility] department in [place] and received viral respiratory panel which was negative for any findings, patient has still been doing unwell the last few days unable to tolerate thing by mouth, still feeling unwell and having chills. Patient presented to the emergency room for evaluation labs were signif icant for white blood cell count 18.9 hemoglobin 15.2 with left shift potassium 3.1 BUN 20 GFR 69 glucose 137 urinalysis pending chest x-ray pending Covid/influenza test pending CT abdomen pelvis without acute findings. Given the patient still feeling unwell, not tolerating any by mouth and has significant leukocytosis ED progress is to admit for further evaluation and management. Allergies aspirin Allergy (Verified 07/13/20 09:51) FOSTER STOMACH codeine Allergy (Verified 07/13/20 09:51) Nausea/Vomiting latex Allergy (Verified 07/13/20 09:51) Rash Home Medications: Alendronate Sodium 70 mg PO EVERY 7TH DAY 05/07/20 Bupivacaine HCl [Marcaine] 5 mg IJ SEECOM 05/07/20 Clonidine HCl/Pf [Clonidine 1000 Mcg/10 ml Vial] 444 mcg IJ SEECOM 05/07/20 Cranberry Fruit Concentrate [Azo Cranberry] 250 mg PO DAILY 05/07/20 Cyanocobalamin (Vitamin B-12) [Cyanocobalamin Injection] 1,000 mcg IJ EVERY 7TH DAY 05/07/20 Gabapentin 400 mg PO SEECOM 05/07/20 Hydromorphone HCl/Pf [Dilaudid 4 mg/ml Syringe] 4 mg IJ SEECOM 05/07/20 Lidocaine 4% Patch [Lidoderm 5% Patch] 1 patch TD DAILY 05/07/20 Multivitamin [Multiple Vitamins] 1 each PO DAILY 05/07/20 Thyroid 105 mg PO DAILY 05/07/20 Zinc 5 mg PO DAILY 05/07/20 Turmeric/Turmeric Root Extract [Turmeric 500 mg Capsule] 1,500 mg PO TID 07/13/20 - Past Medical/Surgical History -: Scoliosis -: Hypothyroidism -: Chronic pain -: Pain pump -: Partial hysterectomy -: -: Wrist surgery Psychosocial/ Personal History: Unemployed, lives at home, alone. - Family History Brother -: Diabetes Sister -: Diabetes - Social History Smoking Status: Former smoker Alcohol use: No CD- Drugs: No Caffeine use: No Place of Residence: Home Review of Systems 10-point ROS is otherwise unremarkable General: Chills, Weakness, Malaise Gastrointestinal: Nausea, Vomiting, Abdominal Pain Physical Examination - Physical Exam General: Alert, In no apparent distress, Oriented x3 HEENT: Atraumatic, PERRLA, Mucous membr. moist/pink, EOMI, Sclerae nonicteric Neck: Supple, 2+ carotid pulse no bruit, No LAD, Without JVD or thyroid abnormality Respiratory: Clear to auscultation bilaterally, Normal air movement Cardiovascular: Regular rate/rhythm, Normal S1 S2 Gastrointestinal: Normal bowel sounds, No tenderness, No masses, No rebound, No guarding, Other (Pain pump palpable in left upper quadrant) Musculoskeletal: No tenderness Integumentary: No rashes Neurological: Normal speech, Normal strength at 5/5 x4 extr, Normal tone, Normal affect - Studies Laboratory Data (last 24 hrs) 02/01/21 20:35: WBC 18.90 H, Hgb 15.2 H, Hct 44.7, Plt Count 299 02/01/21 20:35: Sodium 136, Potassium 3.1 L, BUN 20 H, Creatinine 0.82, Glucose 137 H, Total Bilirubin 0.6, AST 16, ALT 22, Alkaline Phosphatase 56, Lipase 84 Assessment and Plan - Plan Assessment: Abdominal pain, vomiting, chills, leukocytosis Hypokalemia Hypothyroidism Scoliosis/chronic pain with pain pump in place Plan: Abdominal pain, vomiting, chills, leukocytosis: Blood cultures obtained in the emergency room, patient on Zosyn at this time continue with IV fluids. Have ordered urine, chest x-ray, Covid/influenza testing. Patient also with implantable pain pump if white count persist may need to broaden antibiotics and consult infectious disease. Also provide IV Protonix, as needed antiemetics. Hypokalemia: Replaced in ER, protocol in place Hypothyroidism: TSH/T4 pending Scoliosis/chronic pain with pain pump in place: Continue with pain pump, stable at this time. DVT PPX: Lovenox Code status: Full Discharge Plan: Home Plan to discharge in: 48 Hours - Advance Directives Does patient have a Living Will: Yes Does patient have a Durable POA for Healthcare: Yes - Code Status/Comfort Care Code Status Assessed: Yes (Full code) Critical Care: No Time Spent Managing Pts Care (In Minutes): 55
[2021-02-02] MEDS ORDERED: SODIUM CHLORIDE 0.9% 10ML INJ IV PRN (02:49)
[2021-02-02] MEDS: NA CHLORIDE 0.9% 1,000 ML IV SCH ×3 (03:00→17:09)
[2021-02-02] MEDS ORDERED: KCL 20 MEQ/100 mL IVPB 20 MEQ/100 ML BAG IV ONE (03:23)
[2021-02-02] MEDS ORDERED: PANTOPRAZOLE 40 MG INJ ONE ×2 (03:23→08:45)
[2021-02-02] MEDS ORDERED: NA CHLORIDE 0.9% 1,000 ML ONE (03:32)
[2021-02-02 05:34] VITALS: BMI 23.6
--- NOTE | 2021-02-02 06:15 | P.PN ---
Subjective Date of Service: 02/02/21 Primary Care Provider: Dr. Rajput, Dr. Higgins (pain) Chief Complaint: Leukocytosis, abdominal pain, vomiting Subjective: Other (Overall stable. Nausea improved) Physical Examination - Vital Signs Temperature: 98.7 F Blood Pressure: 142/88 Pulse: 96 Pulse Ox (%): 99 - Studies Laboratory Data (last 24 hrs) 02/01/21 20:35: WBC 18.90 H, Hgb 15.2 H, Hct 44.7, Plt Count 299 02/01/21 20:35: Sodium 136, Potassium 3.1 L, BUN 20 H, Creatinine 0.82, Glucose 137 H, Total Bilirubin 0.6, AST 16, ALT 22, Alkaline Phosphatase 56, Lipase 84 Assessment & Plan Discharge Plan: Home Plan to discharge in: 24 Hours Physician Review Additional Text: COVID: negative CXR: COMPARISON: April 2020 TECHNIQUE: AP portable chest image was obtained 02/02/2021 2:32 am . FINDINGS: Lung volumes are low, particularly on the right side. An acute lung parenchymal process is not seen. Mediastinal and hilar regions are accentuated by low lung volumes and rotation. Mediastinal mass or lymphadenopathy cannot be accurately evaluated. Heart and vasculature are normal. No measurable pleural effusion and no pneumothorax. No acute bony abnormality seen. No acute aortic findings suspected. IMPRESSION: Exam is limited as detailed. However, no acute cardiopulmonary finding seen. CT scan abdomen: No acute abnormality Physical Exam: General: Alert, In no apparent distress, Oriented x3 HEENT: Neck supple Respiratory: Clear to auscultation bilaterally, Normal air movement Cardiovascular: Regular rate/rhythm, Normal S1 S2 Gastrointestinal: Normal bowel sounds, No tenderness, No masses, No rebound, No guarding, Other (Pain pump palpable in left upper quadrant) Musculoskeletal: No tenderness patient with scoliosis Integumentary: No rashes Neurological: Normal speech, Normal strength at 5/5 x4 extr, Normal tone, Normal affect Impression: Abdominal pain, vomiting, chills, leukocytosis suspect viral gastroenteritis Hypokalemia Hypothyroidism Scoliosis/chronic pain with pain pump in place Plan: Abdominal pain, vomiting, chills, leukocytosis suspect viral gastroenteritis: Continue Zosyn and IV fluids. Encourage oral intake. Patient on clear liquid diet. Advance as tolerated. CT scan unremarkable. Covid test negative. Will provide Protonix. Physical therapy to assess ambulation. Patient with chronic pain and scoliosis with pain pump. Anticipate continued improvement over the next 48 hours. Hypokalemia: Protocol in place. Hypothyroidism: Obtain restart home medication Scoliosis/chronic pain with pain pump in place: Obtain restart home medication. Patient with pain pump. Neurontin and lidocaine provided. Patient reports that she uses a cane at home. Physical therapy to assess ambulation. DVT PPX: Lovenox Code status: Full Discharge Plan: Home at discharge Time Spent Managing Pts Care (In Minutes): 55
[2021-02-02] MEDS: GABAPENTIN 400 MG CAP PO SCH ×4 (07:00→20:24)
[2021-02-02] MEDS ORDERED: GABAPENTIN 400 MG CAP PO ONE (07:00)
--- NOTE | 2021-02-02 07:41 | RAD REPORT ---
EXAM DESCRIPTION: RAD - Chest Single View - 02/02/2021 2:32 am CLINICAL HISTORY: leukocytosis COMPARISON: April 2020 TECHNIQUE: AP portable chest image was obtained 02/02/2021 2:32 am . FINDINGS: Lung volumes are low, particularly on the right side. An acute lung parenchymal process is not seen. Mediastinal and hilar regions are accentuated by low lung volumes and rotation. Mediastina l mass or lymphadenopathy cannot be accurately evaluated. Heart and vasculature are normal. No measurable pleural effusion and no pneumothorax. No acute bony abnormality seen. No acute aortic findings suspected. IMPRESSION: Exam is limited as detailed. However, no acute cardiopulmonary finding seen.
[2021-02-02] MEDS ORDERED: PNEUMOCOCCAL VACCINE 0.5 ML IMVAC ONE (08:00)
[2021-02-02] MEDS ORDERED: INFLUENZA VACCINE (for 6+ mo) 0.5 ML DOSE IMVAC ONE (08:00)
[2021-02-02] MEDS ORDERED: THIAMINE HCL 100 MG TABLET ONE (08:44)
[2021-02-02] MEDS ORDERED: ENOXAPARIN 40 MG/0.4 ML SQ ONE (08:45)
[2021-02-02] MEDS ORDERED: FOLIC ACID 1 MG TABLET ONE (08:45)
[2021-02-02] MEDS ORDERED: NA CHLORIDE 0.9% 100 ML ONE (08:45)
[2021-02-02] MEDS ORDERED: LIDOCAINE 4% PATCH ONE (08:46)
[2021-02-02] MEDS ORDERED: PIPERACIL/TAZO 3.375 GM VIAL IV ONE (08:46)
[2021-02-02 08:55] LABS: Urine Appearance CLEAR (Clear); Urine Bilirubin NEGATIVE (Negative); Urine Blood 3+ (Negative); Urine Color YELLOW (Yellow); Urine Glucose NEGATIVE (Negative); Urine Protein 2+ (Negative); Urine Specific Gravity >=1.030 (1.005-1.030); Urine Urobilinogen 0.2 mg/dL (0.2-1.0)
[2021-02-02 08:55] LABS: Absolute Lymphocytes (CBC) 1.9 K/uL (0.7-4.9); Basophils % 0.2 % (0-1.3); Hematocrit 45.2 % (36.0-45.0); Lymphocytes % 12.8 % (15.3-44.8); MPV 7.8 fL (7.6-11.3); RBC Red Blood Cell Count 4.93 M/uL (3.86-4.86)
[2021-02-02] MEDS: ENOXAPARIN 40 MG/0.4 ML SQ SCH (09:00)
[2021-02-02] MEDS: FOLIC ACID 1 MG TABLET PO SCH (09:00)
[2021-02-02] MEDS ORDERED: PANTOPRAZOLE 40 MG INJ IVP SCH (09:00)
[2021-02-02] MEDS: PIPER TAZO 3.375 GM in NA CHLORIDE 0.9% 100 ML IV SCH ×2 (09:00→17:09)
[2021-02-02] MEDS: THIAMINE HCL 100 MG TABLET PO SCH (09:00)
[2021-02-02] MEDS: LIDOCAINE 4% PATCH TOP SCH (09:00)
[2021-02-02 09:01] LABS: Urine Microscopic Reflex ORDER UMIC
[2021-02-02 09:07] LABS: Albumin 3.2 g/dL (3.4-5.0); Bilirubin Total 0.6 mg/dL (0.2-1.0); Magnesium 2.2 mg/dL (1.8-2.4); Potassium 3.9 mmol/L (3.5-5.1); Protein, Total 7.1 g/dL (6.4-8.2)
[2021-02-02 09:11] LABS: Urine Bacteria <20 /HPF (<20); Urine RBC 20-50 /HPF (NONE SEEN); Urine Urothelial Cells <5 /HPF (NONE SEEN)
[2021-02-02] MEDS ORDERED: GABAPENTIN 400 MG CAP ONE (09:13)
[2021-02-02] MEDS: ACETAMINOPHEN 500 MG TAB PO PRN (13:29)
[2021-02-02] MEDS ORDERED: ACETAMINOPHEN 500 MG TAB ONE (13:50)
--- NOTE | 2021-02-02 14:43 | RAD REPORT ---
EXAM DESCRIPTION: CT - Abdomen Pelvis W Contrast - 02/02/2021 6:48 am CLINICAL HISTORY: 71 years, Female, back pain, hematuria, stone vs pyelo. Self cath COMPARISON: None. TECHNIQUE: Contrast-enhanced images of the abdomen and pelvis were performed utilizing 5 mm slice th ickness at 5 mm interval reconstruction from the lung bases to the ischial tuberosities after the adm inistration of IV contrast. In addition multiplanar reformats in the coronal and sagittal plane were obtained and reviewed. This exam was performed according to our departmental dose-optimization protocol, which includes auto mated exposure control, adjustment of the mA and/or kV according to patient size and/or use of iterat kian reconstruction technique. FINDINGS: The lung bases demonstrate minimal dependent atelectatic changes right lung base. The liver, gallbladder, pancreas, spleen and adrenal glands demonstrate to be unremarkable, no focal lesions are noted. Incidentally noted presence of contrast within the collecting calyceal system and urinary bladder rel ated to previous iodine study. The kidneys demonstrate normal uptake and excretion of contrast media. No evidence for and/or hydrone phrosis. Grossly the unopacified stomach, small bowel and large bowel demonstrate to be within normal limits. There is no evidence for bowel dilatation/or free air. Fecal residue within the large bowel could s uggest the possibility of mild fecal stasis. The appendix is normal. The urinary bladder demonstrate normal activation of contrast media. The uterus is absent. There ar e no significant adnexal masses. The aorta demonstrate minimal atherosclerotic disease at the aorti c bifurcation. There is no retroperitoneal lymphadenopathy. There is no evidence for ascites or an/ or significant abnormal fluid collections. The bone windows demonstrate marked deformity of the thoracal lumbar spine with findings suggesting c ongenital scoliosis. There is a epidural neurostimulator. Noted is the presence of the right upper extremity within the field of imaging within the upper abdom en. There is abnormal high density material within the right forearm and visualized portions of the a rm there is marked increase density material corresponding to most likely extravasated contrast mater ial. This is best demonstrated on image 1-28. IMPRESSION: Abnormal dense material within the right forearm and visualized portions of the arm tor esponding to extravasated contrast material. Fecal residue within the large bowel could suggest the possibility of mild fecal stasis. Status post hysterectomy. 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 Electronically signed by: Kevin Bennett MD 02/02/2021 1:34 AM CDT Due to temporary technical issues with the PACS/Fluency reporting system, reports are being signed by the in house radiologists without review as a courtesy to insure prompt reporting. The interpreting radiologist is fully responsible for the content of the report.
[2021-02-02] MEDS: TRAZODONE 50 MG TABLET PO PRN ×2 (20:31→23:14)
[2021-02-02] MEDS: ONDANSETRON 4 MG/2 ML VIAL IV PRN (20:31)
[2021-02-02] MEDS ORDERED: GABAPENTIN 400 MG CAP PO SCH ×2 (21:00)
[2021-02-03] MEDS: ACETAMINOPHEN 500 MG TAB PO PRN (00:23)
[2021-02-03] MEDS: PIPER TAZO 3.375 GM in NA CHLORIDE 0.9% 100 ML IV SCH ×2 (00:23→10:20)
[2021-02-03] MEDS ORDERED: NA CHLORIDE 0.9% 100 ML ONE (00:43)
[2021-02-03] MEDS ORDERED: PIPERACIL/TAZO 3.375 GM VIAL IV ONE (00:45)
[2021-02-03 01:24] VITALS: O2SAT 97
[2021-02-03] MEDS: ONDANSETRON 4 MG/2 ML VIAL IV PRN (05:44)
--- NOTE | 2021-02-03 06:06 | P.PN ---
Subjective Date of Service: 02/03/21 Primary Care Provider: Dr. Rajput, Dr. Higgins (pain) Chief Complaint: Leukocytosis, abdominal pain, vomiting Subjective: Improving, Doing well Physical Examination - Vital Signs Temperature: 98.1 F Blood Pressure: 142/61 Pulse: 69 Respirations: 20 Pulse Ox (%): 96 Assessment & Plan Discharge Plan: Home Plan to discharge in: 24 Hours Physician Review Additional Text: COVID: negative CXR: COMPARISON: April 2020 TECHNIQUE: AP portable chest image was obtained 02/02/2021 2:32 am . FINDINGS: Lung volumes are low, particularly on the right side. An acute lung parenchymal process is not seen. Mediastinal and hilar regions are accentuated by low lung volumes and rotation. Mediastinal mass or lymphadenopathy cannot be accurately evaluated. Heart and vasculature are normal. No measurable pleural effusion and no pneumothorax. No acute bony abnormality seen. No acute aortic findings suspected. IMPRESSION: Exam is limited as detailed. However, no acute cardiopulmonary finding seen. CT scan abdomen: COMPARISON: None. TECHNIQUE: Contrast-enhanced images of the abdomen and pelvis were performed utilizing 5 mm slice thickness at 5 mm interval reconstruction from the lung bases to the ischial tuberosities after the administration of IV contrast. In addition multiplanar reformats in the coronal and sagittal plane were obtained and reviewed. This exam was performed according to our departmental dose-optimization protocol, which includes automated exposure control, adjustment of the mA and/or kV according to patient size and/or use of iterative reconstruction technique. FINDINGS: The lung bases demonstrate minimal dependent atelectatic changes right lung base. The liver, gallbladder, pancreas, spleen and adrenal glands demonstrate to be unremarkable, no focal lesions are noted. Incidentally noted presence of contrast within the collecting calyceal system and urinary bladder related to previous iodine study. The kidneys demonstrate normal uptake and excretion of contrast media. No evidence for and/or hydronephrosis. Grossly the unopacified stomach, small bowel and large bowel demonstrate to be within normal limits. There is no evidence for bowel dilatation/or free air. Fecal residue within the large bowel could suggest the possibility of mild fecal stasis. The appendix is normal. The urinary bladder demonstrate normal activation of contrast media. The uterus is absent. There are no significant adnexal masses. The aorta demonstrate minimal atherosclerotic disease at the aortic bifurcation. There is no retroperitoneal lymphadenopathy. There is no evidence for ascites or an/or significant abnormal fluid collections. The bone windows demonstrate marked deformity of the thoracal lumbar spine with findings suggesting congenital scoliosis. There is a epidural neurostimulator. Noted is the presence of the right upper extremity within the field of imaging within the upper abdomen. There is abnormal high density material within the right forearm and visualized portions of the arm there is marked increase density material corresponding to most likely extravasated contrast material. This is best demonstrated on image 1-28. IMPRESSION: Abnormal dense material within the right forearm and visualized portions of the arm corresponding to extravasated contrast material. Fecal residue within the large bowel could suggest the possibility of mild fecal stasis. Status post hysterectomy. 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 Physical Exam: General: Alert, In no apparent distress, Oriented x3 HEENT: Neck supple Respiratory: Clear to auscultation bilaterally, Normal air movement Cardiovascular: Regular rate/rhythm, Normal S1 S2 Gastrointestinal: Soft, nontender nondistended Musculoskeletal: No tenderness patient with scoliosis Integumentary: No rashes Neurological: Normal speech, Normal strength at 5/5 x4 extr, Normal tone, Normal affect Impression: Abdominal pain, vomiting, chills, leukocytosis suspect viral gastroenteritis Hypokalemia Hypothyroidism Scoliosis/chronic pain with pain pump in place Plan: Abdominal pain, vomiting, chills, leukocytosis suspect viral gastroenteritis: Patient doing well at this time. We will plan to discharge home. Continue with Flagyl 500 mg 3 times a day for 5 more days. Patient will continue with lactobacillus 3 times a day. Continue with Protonix 40 mg daily. Continue with Dulcolax once daily for stool softener. Recommend follow-up with PCP within 1 week to follow-up hospital visit Hypokalemia: Protocol in place. Hypothyroidism: Continue medication Scoliosis/chronic pain with pain pump in place: Continue home medication. Patient with pain pump. Neurontin and lidocaine provided. Patient reports that she uses a cane at home. Physical therapy to assess ambulation. DVT PPX: Lovenox Code status: Full Discharge Plan: Home at discharge Time Spent Managing Pts Care (In Minutes): 55
[2021-02-03] MEDS ORDERED: PANTOPRAZOLE 40MG TABLET PO SCH (06:30)
[2021-02-03] MEDS: NA CHLORIDE 0.9% 1,000 ML IV SCH ×2 (09:00→10:19)
[2021-02-03] MEDS: LACTOBACILLUS/ACIDOPHILUS TAB PO SCH ×2 (09:00→11:11)
[2021-02-03] MEDS ORDERED: ONDANSETRON 4 MG/2 ML VIAL IV ONE (09:33)
[2021-02-03] MEDS: LIDOCAINE 4% PATCH TOP SCH (10:18)
[2021-02-03] MEDS: ENOXAPARIN 40 MG/0.4 ML SQ SCH (10:19)
[2021-02-03] MEDS: GABAPENTIN 400 MG CAP PO SCH (11:09)
[2021-02-03] MEDS: THIAMINE HCL 100 MG TABLET PO SCH (11:10)
[2021-02-03] MEDS: FOLIC ACID 1 MG TABLET PO SCH (11:11)
[2021-02-03 12:01] VITALS: BP 142/61; TEMP 98.1
--- NOTE | 2021-02-03 12:01 | P.DS ---
Admission Date: 02/02/21 Discharge Date: 02/03/21 Primary Care Provider: Dr. Rajput, Chronic pain management-Dr. Vu Disposition: ROUTINE DISCHARGE Discharge Condition: GOOD Reason for Admission: Leukocytosis, abdominal pain, vomiting Consultations: none Procedures: COVID: negative CXR: COMPARISON: April 2020 TECHNIQUE: AP portable chest image was obtained 02/02/2021 2:32 am . FINDINGS: Lung volumes are low, particularly on the right side. An acute lung parenchymal process is not seen. Mediastinal and hilar regions are accentuated by low lung volumes and rotation. Mediastinal mass or lymphadenopathy cannot be accurately evaluated. Heart and vasculature are normal. No measurable pleural effusion and no pneumothorax. No acute bony abnormality seen. No acute aortic findings suspected. IMPRESSION: Exam is limited as detailed. However, no acute cardiopulmonary finding seen. CT scan abdomen: COMPARISON: None. TECHNIQUE: Contrast-enhanced images of the abdomen and pelvis were performed utilizing 5 mm slice thickness at 5 mm interval reconstruction from the lung bases to the ischial tuberosities after the administration of IV contrast. In addition multiplanar reformats in the coronal and sagittal plane were obtained and reviewed. This exam was performed according to our departmental dose-optimization protocol, which includes automated exposure control, adjustment of the mA and/or kV according to patient size and/or use of iterative reconstruction technique. FINDINGS: The lung bases demonstrate minimal dependent atelectatic changes right lung base. The liver, gallbladder, pancreas, spleen and adrenal glands demonstrate to be unremarkable, no focal lesions are noted. Incidentally noted presence of contrast within the collecting calyceal system and urinary bladder related to previous iodine study. The kidneys demonstrate normal uptake and excretion of contrast media. No evidence for and/or hydronephrosis. Grossly the unopacified stomach, small bowel and large bowel demonstrate to be within normal limits. There is no evidence for bowel dilatation/or free air. Fecal residue within the large bowel could suggest the possibility of mild fecal stasis. The appendix is normal. The urinary bladder demonstrate normal activation of contrast media. The uterus is absent. There are no significant adnexal masses. The aorta demonstrate minimal atherosclerotic disease at the aortic bifurcation. There is no retroperitoneal lymphadenopathy. There is no evidence for ascites or an/or significant abnormal fluid collections. The bone windows demonstrate marked deformity of the thoracal lumbar spine with findings suggesting congenital scoliosis. There is a epidural neurostimulator. Noted is the presence of the right upper extremity within the field of imaging within the upper abdomen. There is abnormal high density material within the right forearm and visualized portions of the arm there is marked increase density material corresponding to most likely extravasated contrast material. This is best demonstrated on image 1-28. IMPRESSION: Abnormal dense material within the right forearm and visualized portions of the arm corresponding to extravasated contrast material. Fecal residue within the large bowel could suggest the possibility of mild fecal stasis. Status post hysterectomy. 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 Medical Problem List: Abdominal pain, vomiting, chills, leukocytosis suspect viral gastroenteritis GERD Hypokalemia Hypothyroidism Scoliosis/chronic pain with pain pump in place Osteoporosis Insomnia Brief History of Present Illness: 71-year-old female with history of chronic pain with scoliosis. Patient with pain pump. Patient presented with abdominal pain, nausea and vomiting. She was seen at [facility] and released. Patient continued to have pain. She was seen in the emergency room. CT scan unremarkable. Due to her continued symptoms the patient was admitted for treatment. Hospital Course: Patient presented with abdominal pain, nausea and vomiting. Patient had been seen at [facility] ER and released. Patient continued to have pain. Patient was evaluated in the emergency room. CT scan shows no acute findings. Patient was admitted for further evaluation and treatment. Covid test negative. Procalcitonin negative. Chest x-ray unremarkable. Urine unremarkable. Blood cultures negative. Patient received IV fluids with improvement. Patient also given antibiotic therapy. At discharge patient able to tolerate her diet. Suspect viral gastroenteritis. At discharge the patient will continue with Flagyl 500 mg 1 pill 3 times a day for 5 days. Patient to continue with lactobacillus 3 times a day. Will recommend to start Protonix 40 mg daily as the patient may have underlying GERD. Patient with history of chronic pain with Dilaudid pain pump. Her constipation may be a contributing factor. Recommend docusate 100 mg daily as a stool softener. She may take MiraLAX [id number] as needed for constipation. Recommend follow-up with PCP within 1 week to follow-up his hospitalization. Patient with GERD. Recommend to continue Protonix 40 mg daily. Patient with hypothyroidism. At discharge she will continue with her medicationArmour Thyroid 135 mg daily. Patient with history of severe scoliosis and chronic pain. Patient with D ilaudid pain pump in place. She uses a cane at home with ambulation. Continue with fall precautions. At discharge she will continue with her regimen of gabapentin, lidocaine patch, and Dilaudid pain pump. Continue with follow-up with her pain management physician. Patient also with osteoporosis. At discharge she will continue with Fosamax every week. Patient will continue with her other vitamin supplementation including cranberry, multivitamin, and vitamin B12. Patient also uses trazodone 100 mg at bedtime likely for insomnia. Vital Signs/Physical Exam: Temp Pulse Resp BP Pulse Ox 98.1 F 69 20 142/61 H 96 02/03/21 12:00 02/03/21 12:00 02/03/21 12:00 02/03/21 12:00 02/03/21 12:00 General: Alert, In no apparent distress, Oriented x3, Cooperative HEENT: Atraumatic Neck: Supple Respiratory: Clear to auscultation bilaterally, Normal air movement Cardiovascular: Normal pulses, Regular rate/rhythm Gastrointestinal: Normal bowel sounds, No tenderness, No masses, No rebound, No guarding Musculoskeletal: No erythema, No tenderness, No warmth Integumentary: No tenderness/swelling, No erythema Neurological: Normal speech, Normal strength at 5/5 x4 extr, Normal tone, Normal affect Laboratory Data at Discharge: WBC 14.70 K/uL (4.3-10.9) H D 02/02/21 06:20 Hgb 15.0 g/dL (12.0-15.0) 02/02/21 06:20 Hct 45.2 % (36.0-45.0) H 02/02/21 06:20 Plt Count 295 K/uL (152-406) 02/02/21 06:20 Sodium 138 mmol/L (136-145) 02/02/21 06:20 Potassium 3.9 mmol/L (3.5-5.1) 02/02/21 06:20 BUN 20 mg/dL (7-18) H 02/02/21 06:20 Creatinine 0.78 mg/dL (0.55-1.3) 02/02/21 06:20 Glucose 141 mg/dL (74-106) H 02/02/21 06:20 Magnesium 2.2 mg/dL (1.8-2.4) 02/02/21 06:20 Total Bilirubin 0.6 mg/dL (0.2-1.0) 02/02/21 06:20 AST 14 U/L (15-37) L 02/02/21 06:20 ALT 18 U/L (12-78) 02/02/21 06:20 Alkaline Phosphatase 54 U/L (45-117) 02/02/21 06:20 Triglycerides 100 mg/dL (<150) 02/02/21 06:20 Cholesterol 170 mg/dL (<200) 02/02/21 06:20 HDL Cholesterol 53 mg/dL (40-60) 02/02/21 06:20 Cholesterol/HDL Ratio 3.21 02/02/21 06:20 Lipase 84 U/L (73-393) 02/01/21 20:35 Home Medications: Alendronate Sodium 70 mg PO EVERY 7TH DAY 05/07/20 Bupivacaine HCl [Marcaine] 5 mg IJ SEECOM 05/07/20 Clonidine HCl/Pf [Clonidine 1000 Mcg/10 ml Vial] 444 mcg IJ SEECOM 05/07/20 Cranberry Fruit Concentrate [Azo Cranberry] 250 mg PO DAILY 05/07/20 Cyanocobalamin (Vitamin B-12) [Cyanocobalamin Injection] 1,000 mcg IJ EVERY 7TH DAY 05/07/20 Gabapentin 400 mg PO SEECOM 05/07/20 Hydromorphone HCl/Pf [Dilaudid 4 mg/ml Syringe] 4 mg IJ SEECOM 05/07/20 Lidocaine 4% Patch [Lidoderm 5% Patch*] 1 patch TD DAILY 05/07/20 Multivitamin [Multiple Vitamins] 1 each PO DAILY 05/07/20 Zinc 25 mg PO DAILY 05/07/20 Turmeric/Turmeric Root Extract [Turmeric 500 mg Capsule] 1,500 mg PO TID 07/13/20 Thyroid,Pork [[place] Thyroid] 15 mg PO DAILY 02/02/21 Thyroid,Pork [[place] Thyroid] 120 mg PO DAILY 02/02/21 Trazodone HCl 1 tab PO BEDTIME 02/02/21 Docusate [Colace Cap*] 100 mg PO DAILY #30 cap 02/03/21 Lactobacillus Acidophilus [Acidophilus Lactobacilli] 1 each PO TID #90 capsule 02/03/21 Pantoprazole [Protonix Tab*] 40 mg PO DAILYAC #30 tab 02/03/21 metroNIDAZOLE [Flagyl] 500 mg PO Q8H #15 tablet 02/03/21 New Medications: Lactobacillus Acidophilus [Acidophilus Lactobacilli] 1 each PO TID #90 capsule Docusate [Colace Cap*] 100 mg PO DAILY #30 cap metroNIDAZOLE [Flagyl] 500 mg PO Q8H #15 tablet Pantoprazole [Protonix Tab*] 40 mg PO DAILYAC #30 tab Physician Discharge Instructions: Patient presented with abdominal pain, nausea and vomiting. Patient had been seen at [facility] ER and released. Patient continued to have pain. Patient was evaluated in the emergency room. CT scan shows no acute findings. Patient was admitted for further evaluation and treatment. Covid test negative. Procalcitonin negative. Chest x-ray unremarkable. Urine unremarkable. Blood cultures negative. Patient received IV fluids with improvement. Patient also given antibiotic therapy. At discharge patient able to tolerate her diet. Suspect viral gastroenteritis. At discharge the patient will continue with Flagyl 500 mg 1 pill 3 times a day for 5 days. Patient to continue with lactobacillus 3 times a day. Will recommend to start Protonix 40 mg daily as the patient may have underlying GERD. Patient with history of chronic pain with Dilaudid pain pump. Her constipation may be a contributing factor. Recommend docusate 100 mg daily as a stool softener. She may take MiraLAX [id number] as needed for constipation. Recommend follow-up with PCP within 1 week to follow-up his hospitalization. Patient with GERD. Recommend to continue Protonix 40 mg daily. Patient with hypothyroidism. At discharge she will continue with her medicationArmour Thyroid 135 mg daily. Patient with history of severe scoliosis and chronic pain. Patient with Di laudid pain pump in place. She uses a cane at home with ambulation. Continue with fall precautions. At discharge she will continue with her regimen of gabapentin, lidocaine patch, and Dilaudid pain pump. Continue with follow-up with her pain management physician. Patient also with osteoporosis. At discharge she will continue with Fosamax every week. Patient will continue with her other vitamin supplementation including cranberry, multivitamin, and vitamin B12. Patient also uses trazodone 100 mg at bedtime likely for insomnia. Diet: gi soft Activity: Fall precautions Followup: Glenroy Rajput MD [Primary Care Provider] - Time spent managing pt's care (in minutes): 55
== END 2021-02-03 13:40 | disposition home or self-care (01) | DRG 872 ==
LOC: ER 17:43 → ERHOLD 02-02 02:15 → 2ND 02-02 16:07
PROVIDERS: ADMIT Family Medicine; ATTEND Family Medicine
DX: A41.89 Other specified sepsis (principal); A08.4 Viral intestinal infection, unspecified; E87.6 Hypokalemia; M41.9 Scoliosis, unspecified; G47.00 Insomnia, unspecified; M81.0 Age-related osteoporosis without current pathological fracture; E03.9 Hypothyroidism, unspecified; Z97.8 Presence of other specified devices; Z91.040 Latex allergy status; Z79.899 Other long term (current) drug therapy; Z88.5 Allergy status to narcotic agent; Z90.711 Acquired absence of uterus with remaining cervical stump; Z87.891 Personal history of nicotine dependence; Z88.8 Allergy status to other drugs, medicaments and biological substances; Z56.0 Unemployment, unspecified; Z60.2 Problems related to living alone; Z20.822 Contact with and (suspected) exposure to COVID-19
CPT/HCPCS: 36415; 71045; 74177; 80048; 80053; 80061; 80076; 81003; 81015; 82565; 83605; 83690; 83735; 84145; 85025; 87040; 87804; 97161; 99284; C9113; J1650; J2405; J2543; J3480; J7030; Q9967; U0003